=== PATIENT | female | born 2000 | race Caucasian/White ===

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

== ENCOUNTER → 2023-11-19 | Outpatient (CLI) | payer BC ==
--- NOTE | 2023-11-19 19:20 | XR ---
EXAMINATION TYPE: XR lumbar spine 2 or 3V DATE OF EXAM: 11/19/2023 1:44 PM CLINICAL INDICATION:Female, 23 years old with history of M54.50 Low back pain; [facility] COMPARISON: None TECHNIQUE: XR lumbar spine 2 or 3V - Frontal, lateral and coned in L5-S1 lateral views of the spine. FINDINGS: No evidence of any acute osseous pathology. No evidence of loss of vertebral body height i s seen. There is normal alignment of the lumbar vertebral bodies. No significant degeneration changes throughout the spine. No neural foramen and spinal canal appear patent. IMPRESSION: No acute fracture.
== END | disposition home or self-care (01) ==
LOC: RADXRMAIN 13:29
PROVIDERS: ATTEND Family Medicine
DX: M54.50 Low back pain, unspecified (principal)
CPT/HCPCS: 72100